=== PATIENT | female | born 1995 | race American Indian/Alaskan Native ===

== ENCOUNTER 2018-11-29 14:02 | Emergency (ER) | payer MEDICAID, OTHER ==
--- NOTE | 2018-11-29 14:41 | Emergency Department Report ---
Blank Doc - Documentation Documentation: Abdominal pain with vaginal discharge . Was told bacterial vaginosis took medi cation twice daily and now with vaginall itching and irritation. Treated and examined in [place] just moved here. No PCP. Had full std work up in [place]. LMP 10/24/2018 . No urinary burning, frequency, or utrhency. Positive lower abdominal pain. No fever or chills Labs,
[2018-11-29 15:23] LABS: Bilirubin,Urine NEG (Negative); Blood,Urine NEG (Negative); Color,Urine Yellow (Yellow); Mucus,Urine 3+ /HPF; Protein,Urine <15 mg/dL mg/dL (Negative); Urobilinogen,Urine < 2.0 mg/dL (<2.0)
[2018-11-29 15:28] LABS: HCG Qualitative,Urine Positive (Negative)
[2018-11-29 16:05] LABS: Hematocrit 30.6 % (30.3-42.9); Hemoglobin 9.9 gm/dl (10.1-14.3); Mean Corpuscular HGB Conc 33 % (30-34); Mean Corpuscular Volume 70 fl (79-97); Platelet Count 184 K/mm3 (140-440); Red Blood Count 4.37 M/mm3 (3.65-5.03); Red Cell Distribution Width 19.9 % (13.2-15.2)
[2018-11-29 16:25] LABS: BUN/Creatinine Ratio 15; Blood Urea Nitrogen 9 mg/dL (7-17); Calcium 9.6 mg/dL (8.4-10.2); Hemolysis Index 19
--- NOTE | 2018-11-29 16:33 | Emergency Department Report ---
ED Dysuria HPI - HPI Chief Complaint: Abdominal Pain Stated Complaint: vag dc Time Seen by Provider: 11/29/18 14:36 Duration: 3 Days Severity: Mild Symptoms: Dysuria: No, Frequency: No, Suprapubic Pain: No, Flank Pain: No, Fever: No, Hematuria: No, Abdominal Pain: No, Previous UTI's: No Other History: Patient is a 23-year-old female who comes to the ER today complaining of vaginal discharge. She had told the triage nurse that she was having back and abdominal pain. However, she denies having pain when asked by the provider. She states that she has been sleeping a lot and eating a lot. She states that her mother told her she was . However, patient does not believe that she can get because she has not in many years of being sexually active. Patient is having sex unprotected with 1 male partner. Patient is not concerned for STDs. G0. LMP 5-26 ED Review of Systems ROS: Stated complaint: SEVERE SHARP PAINS/DISCHARGE Other details as noted in HPI Comment: All other systems reviewed and negative ED Past Medical Hx - Past Medical History Previous Medical History?: Yes Hx Seizures: Yes - Surgical History Past Surgical History?: No - Family History Family history: no significant - Social History Smoking Status: Current Every Day Smoker - Medications Home Medications: Home Medications Medication Instructions Recorded Confirmed Last Taken Type Ondansetron [Zofran Odt] 4 mg PO Q8HR PRN #10 tab.rapdis 11/29/18 Unknown Rx Vit-Fe Fumar-FA [ 1 tab PO QDAY #30 tablet 11/29/18 Unknown Rx Vitamin] Dysuria Exam - Exam General: Vital signs noted. No distress. Alert and acting appropriately. Exam: Yes Moist Mucous Membranes, No CVA Tenderness, No Abdominal Tenderness, No Rigidity or Guarding Labs: Lab Results 11/29/18 11/29/18 11/29/18 Range/Units 14:49 15:45 15:45 WBC 7.0 (4.5-11.0) K/mm3 RBC 4.37 (3.65-5.03) M/mm3 Hgb 9.9 L (10.1-14.3) gm/dl Hct 30.6 (30.3-42.9) % MCV 70 L (79-97) fl MCH 23 L (28-32) pg MCHC 33 (30-34) % RDW 19.9 H (13.2-15.2) % Plt Count 184 (140-440) K/mm3 Sodium 135 L (137-145) mmol/L Potassium 4.0 (3.6-5.0) mmol/L Chloride 104.3 (98-107) mmol/L Carbon Dioxide 20 L (22-30) mmol/L Anion Gap 15 mmol/L BUN 9 (7-17) mg/dL Creatinine 0.6 L (0.7-1.2) mg/dL Estimated GFR > 60 ml/min BUN/Creatinine Ratio 15 % Glucose 84 (65-100) mg/dL Calcium 9.6 (8.4-10.2) mg/dL Urine Color Yellow (Yellow) Urine Turbidity Slightly-cloudy (Clear) Urine pH 5.0 (5.0-7.0) Ur Specific [place]ley 1.021 (1.003-1.030) Urine Protein <15 mg/dl (Negative) mg/dL Urine Glucose (UA) Neg (Negative) mg/dL Urine Ketones Neg (Negative) mg/dL Urine Blood Neg (Negative) Urine Nitrite Neg (Negative) Urine Bilirubin Neg (Negative) Urine Urobilinogen < 2.0 (<2.0) mg/dL Ur Leukocyte Esterase Neg (Negative) Urine WBC (Auto) 1.0 (0.0-6.0) /HPF Urine RBC (Auto) 3.0 (0.0-6.0) /HPF U Epithel Cells (Auto) 5.0 (0-13.0) /HPF Urine Mucus 3+ /HPF Urine HCG, Qual Positive A (Negative) Blood Type Ord Rhogam Gestat Weeks WEEKS 11/29/18 Range/Units 15:49 WBC (4.5-11.0) K/mm3 RBC (3.65-5.03) M/mm3 Hgb (10.1-14.3) gm/dl Hct (30.3-42.9) % MCV (79-97) fl MCH (28-32) pg MCHC (30-34) % RDW (13.2-15.2) % Plt Count (140-440) K/mm3 Sodium (137-145) mmol/L Potassium (3.6-5.0) mmol/L Chloride (98-107) mmol/L Carbon Dioxide (22-30) mmol/L Anion Gap mmol/L BUN (7-17) mg/dL Creatinine (0.7-1.2) mg/dL Estimated GFR ml/min BUN/Creatinine Ratio % Glucose (65-100) mg/dL Calcium (8.4-10.2) mg/dL Urine Color (Yellow) Urine Turbidity (Clear) Urine pH (5.0-7.0) Ur Specific [place] (1.003-1.030) Urine Protein (Negative) mg/dL Urine Glucose (UA) (Negative) mg/dL Urine Ketones (Negative) mg/dL Urine Blood (Negative) Urine Nitrite (Negative) Urine Bilirubin (Negative) Urine Urobilinogen (<2.0) mg/dL Ur Leukocyte Esterase (Negative) Urine WBC (Auto) (0.0-6.0) /HPF Urine RBC (Auto) (0.0-6.0) /HPF U Epithel Cells (Auto) (0-13.0) /HPF Urine Mucus /HPF Urine HCG, Qual (Negative) Blood Type A POSITIVE Ord Rhogam Gestat Weeks Rh pos WEEKS ED Course Vital Signs 11/29/18 14:34 Temperature 98.5 F Pulse Rate 83 Respiratory 18 Rate Blood Pressure 107/62 O2 Sat by Pulse 100 Oximetry ED Medical Decision Making - Lab Data Result diagrams: 11/29/18 15:45 11/29/18 15:45 - Medical Decision Making Vital Signs 11/29/18 14:34 Temperature 98.5 F Pulse Rate 83 Respiratory 18 Rate Blood Pressure 107/62 O2 Sat by Pulse 100 Oximetry Labs 11/29/18 11/29/18 11/29/18 14:49 15:45 15:45 WBC 7.0 RBC 4.37 Hgb 9.9 L Hct 30.6 MCV 70 L MCH 23 L MCHC 33 RDW 19.9 H Plt Count 184 Sodium 135 L Potassium 4.0 Chloride 104.3 Carbon Dioxide 20 L Anion Gap 15 BUN 9 Creatinine 0.6 L Estimated GFR > 60 BUN/Creatinine Ratio 15 Glucose 84 Calcium 9.6 Urine Color Yellow Urine Turbidity Slightly-cloudy Urine pH 5.0 Ur Specific Hurley 1.021 Urine Protein <15 mg/dl Urine Glucose (UA) Neg Urine Ketones Neg Urine Blood Neg Urine Nitrite Neg Urine Bilirubin Neg Urine Urobilinogen < 2.0 Ur Leukocyte Esterase Neg Urine WBC (Auto) 1.0 Urine RBC (Auto) 3.0 U Epithel Cells (Auto) 5.0 Urine Mucus 3+ Urine HCG, Qual Positive A Blood Type Ord Rhogam Gestat Weeks 11/29/18 15:49 WBC RBC Hgb Hct MCV MCH MCHC RDW Plt Count Sodium Potassium Chloride Carbon Dioxide Anion Gap BUN Creatinine Estimated GFR BUN/Creatinine Ratio Glucose Calcium Urine Color Urine Turbidity Urine pH Ur Specific [place]ley Urine Protein Urine Glucose (UA) Urine Ketones Urine Blood Urine Nitrite Urine Bilirubin Urine Urobilinogen Ur Leukocyte Esterase Urine WBC (Auto) Urine RBC (Auto) U Epithel Cells (Auto) Urine Mucus Urine HCG, Qual Blood Type A POSITIVE Ord Rhogam Gestat Weeks Rh pos preg pos- discussed with pt; she did not seem to surprised. Her mother had told her she was . abd soft non tender no cva tenderness one sexual partner in [facility] committed relationship no uti RH pos no vag bleed. no abdominal pain. no fever. no dysuria. one sexual partner G1 HCG NOTED 1630 ON REEXAM AGAIN DENIES ABD PAIN OR BLEEDING. DC HOME WITH OBGYN FOLLOW UP. - Differential Diagnosis UTI/STI/ Critical care attestation.: If time is entered above; I have spent that time in minutes in the direct care of this critically ill patient, excluding procedure time. ED Disposition Clinical Impression: Disposition: DC-01 TO HOME OR SELFCARE Is pt being admited?: No Does the pt Need Aspirin: No Condition: Stable Instructions: (ED) Additional Instructions: TYLENOL ONLY FOR PAIN BALANCED DIET DRINK A LOT OF WATER NO ALCOHOL OR DRUGS OR TOBACCO SAFE SEX FOLLOW UP WITH OBGYN FOR 1ST VISIT YOUR BLOOD TYPE IS RH POS LMP 10/20- EDC 07/26 DAILY VITAMIN Prescriptions: Vit-Fe Fumar-FA [ Vitamin] 1 tab PO QDAY #30 tablet Ondansetron [Zofran Odt] 4 mg PO Q8HR PRN #10 tab.rapdis PRN Reason: Vomiting Referrals: OVIDIO PEREZ MD [Staff Physician] - 3-5 Days Time of Disposition: 16:31
[2018-11-29 17:18] VITALS: BP 104/69
== END 2018-11-29 17:00 | disposition home or self-care (01) ==
LOC: ED 14:02
DX: O26.891 Other specified pregnancy related conditions, first trimester (principal); N89.8 Other specified noninflammatory disorders of vagina; M54.9 Dorsalgia, unspecified; R10.9 Unspecified abdominal pain; Z3A.01 Less than 8 weeks gestation of pregnancy
CPT/HCPCS: 36415; 80048; 81001; 81025; 84702; 85027; 86900; 86901

== ENCOUNTER 2018-12-15 21:08 | Emergency (ER) | payer SELFPAY ==
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
[2018-12-15 23:09] LABS: Bacteria,Urine 1+ /HPF (Negative); Bilirubin,Urine NEG (Negative); Blood,Urine NEG (Negative); Color,Urine Yellow (Yellow); Granular Casts,Urine 4 /LPF; Mucus,Urine 3+ /HPF; Urobilinogen,Urine < 2.0 mg/dL (<2.0)
[2018-12-16 00:28] VITALS: BP 118/70
== END 2018-12-16 00:25 | disposition home or self-care (01) ==
LOC: ED 21:08
DX: O23.41 Unspecified infection of urinary tract in pregnancy, first trimester (principal); Z79.899 Other long term (current) drug therapy; Z3A.01 Less than 8 weeks gestation of pregnancy
CPT/HCPCS: 36415; 76801; 76817; 81001; 84702

== ENCOUNTER 2019-07-23 19:26 | Inpatient (IN) | payer MEDICAID, OTHER ==
[2019-07-23] MEDS ORDERED: AMPICILLIN/NS 2 GM/100 ML 2 GM/100 ML BAG IV ONE (20:04)
[2019-07-23] MEDS ORDERED: LIDOCAINE (2%) 20 MG/1 ML VIAL 20 ML MDV INFILTRATI ONE (20:04)
[2019-07-23] MEDS ORDERED: MINERAL OIL 30 ML ORAL LIQD PO PRN (20:04)
[2019-07-23] MEDS ORDERED: TERBUTALINE 1 MG/1 ML INJ IVP PRN (20:04)
[2019-07-23] MEDS ORDERED: TERBUTALINE 1 MG/1 ML INJ SUB-Q PRN (20:04)
[2019-07-23] MEDS ORDERED: ePHEDrine SULFATE 50 MG/1 ML INJ IV PRN (20:04)
[2019-07-23] MEDS ORDERED: BUTORPHANOL 2 MG/1 ML INJ IV PRN ×2 (20:04)
[2019-07-23 20:49] LABS: Hematocrit 26.5 % (30.3-42.9); Hemoglobin 8.2 gm/dl (10.1-14.3); Mean Corpuscular HGB Conc 31 % (30-34)
[2019-07-23 20:50] LABS: Mean Corpuscular Volume 65 fl (79-97); Red Cell Distribution Width 22.2 % (13.2-15.2)
[2019-07-23 20:51] LABS: Platelet Count 155 K/mm3 (140-440)
[2019-07-23] MEDS ORDERED: OXYTOCIN 20 UNIT/1000ML DRIP 20 UNITS/1,000 ML BAG IV SCH (21:00)
[2019-07-23 21:01] LABS: Amphetamine Screen,Urine PRESUMPTIVE NEGATIVE; Benzodiazepines Screen,Urine PRESUMPTIVE NEGATIVE; Cocaine Screen,Urine PRESUMPTIVE NEGATIVE; Methadone Screen,Urine PRESUMPTIVE NEGATIVE; Opiate Screen,Urine PRESUMPTIVE NEGATIVE
--- NOTE | 2019-07-23 21:06 | History and Physical Report ---
History of Present Illness Chief complaint: uterine contractions History of present illness: 24yo at 39 1/7wks JAMES 07/31/19 with care in [place] presents in latent labor with regular painful contractions. Cervix 2/70/-3. Ultrasound reveals MELVIN 2. Therefore she was admitted for augmentation of labor for oligohydramnios at term. labs were drawn and resulted in REACTIVE RPR. Patient was unaware and states she tested positive for all blood work throughout her . Ultrasound done at [facility] in 11/2018 at 7 weeks gestation confirms dating. Her has been complicated by anemia for which she was diagnosed iron. She states she ate ice instead. She has a history of childhood seizures, last seizure at age 14. She states she saw a neurologist this and is on no medications. She is unaware of her GBS status and GBS is unknown. She denies HIV, Hepatitis C and genital herpes. 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: chlamydia (treated pre-), syphilis (REACTIVE RPR on L&D, titers and confirmatory test pending) Family/Genetic History: none Social history: single (FOB lives in [place]; mother lives in [place]) - Obstetrical History Expected Date of Delivery: 07/31/19 Actual Gestation: 39 Week(s) 0 Day(s) : 1 Number of Living Children: 0 Medications and Allergies Allergies Allergy/AdvReac Type Severity Reaction Status Date / Time No Known Allergies Allergy Verified 07/23/19 19:38 Home Medications Medication Instructions Recorded Confirmed Last Taken Type Ferrous Sulfate [Iron 325 MG] 1 tab PO DAILY 07/23/19 07/23/19 07/23/19 History Active Meds: Active Medications Butorphanol Tartrate (Stadol) 1 mg IV Q2H PRN PRN Reason: Labor Pain Butorphanol Tartrate (Stadol) 2 mg IV Q2H PRN PRN Reason: Pain , Severe (7-10) Ephedrine Sulfate (Ephedrine Sulfate) 10 mg IV Q2M PRN PRN Reason: Hypotension Oxytocin/Sodium Chloride (Pitocin/Ns 20 Unit/1000ml Drip) 20 units in 1,000 mls @ 125 mls/hr IV DIRECT JERRY Lactated Ringer's (Lactated Ringers) 1,000 mls @ 125 mls/hr IV DIRECT JERRY Ampicillin Sodium (Ampicillin/Ns 1 Gm/50 Ml) 1 gm in 50 mls @ 100 mls/hr IV Q4HR JERRY; Protocol Mineral Oil (Mineral Oil) 30 ml PO QHS PRN PRN Reason: Constipation Terbutaline Sulfate (Brethine) 0.25 mg SUB-Q ONCE PRN PRN Reason: Hyperstimulation/Hypertonicity Terbutaline Sulfate (Brethine) 0.25 mg IVP ONCE PRN PRN Reason: Hyperstimulation/Hypertonicity - Vital Signs Vital signs: Vital Signs Pulse BP 99 H 121/70 07/23/19 19:49 07/23/19 19:49 Temp Pulse Resp BP Pulse Ox 98.7 F 94 H 18 133/81 98 07/23/19 19:52 07/23/19 21:02 07/23/19 19:52 07/23/19 20:22 07/23/19 21:02 - Obstetrical FHR: category 1 Cervical Dilatation: 3 Cervical Effacement Percentage: 70 station: -2 Uterine Contraction Pattern: Regular Results Result Diagrams: 07/23/19 20:20 Abnormal lab results 07/23/19 Range/Units 20:20 WBC 11.5 H (4.5-11.0) K/mm3 Hgb 8.2 L (10.1-14.3) gm/dl Hct 26.5 L (30.3-42.9) % MCV 65 L (79-97) fl MCH 20 L (28-32) pg RDW 22.2 H (13.2-15.2) % All other labs normal. Assessment and Plan - Patient Problems (1) Positive RPR test Current Visit: Yes Status: Acute Plan to address problem: Patient notified of results and implication of reactive RPR results including possible false positive results. Explained confirmatory test is an offsite hospital test and therefore titers will be drawn and treatment recommended while awaiting results. Risks of syphillis discussed including stillbirth and po ssible NICU admission including need for testing and treatment. Genital lesions past and present denied. Risk of treatment with Penicillin G IM discussed. Patient understands and acknowledges risks. Plan PCN G 2.4mil units IM x 1. (2) Oligohydramnios Current Visit: Yes Status: Acute (3) 39 weeks gestation of Current Visit: Yes Status: Acute Plan to address problem: Obtain records from [place] when office opens. Admit for augmentation of labor due to oligohydramnios at term. GBS prophylaxis initiated due to unknown GBS prophylaxis. No recent seizures. Will monitor for signs. Pitocin augmentation initiated. Anticipate spontaneous vaginal delivery. (4) Anemia affecting Current Visit: Yes Status: Acute Plan to address problem: Asymptomatic anemia present on admission. Patient acknowledges diagnosis throughout care. Risk and benefits and potential need for blood transfusion during admission discussed. Patient acknowledges and understands risks.
[2019-07-23 21:13] LABS: Cannabinoid Screen,Urine PRESUMPTIVE POSITIVE
[2019-07-23 21:24] LABS: Hepatitis C Virus Antibody Non-Reactive (NonReactive)
--- NOTE | 2019-07-23 22:06 | Ultrasound Report ---
ULTRASOUND OBSTETRIC INDICATION: Assess well-being. Clinical Gestational Age (GA): 38 weeks, 6 days TECHNIQUE: Transabdominal. COMPARISON: OB ultrasound from 12/15/2018. FINDINGS: There is a single intrauterine . Biparietal Diameter = 8.7 cm = 34 weeks, 6 day(s). Head Circumference = 33.1 cm = 37 weeks, 5 day(s). Abdominal Circumference = 33.5 cm = 37 weeks, 3 day(s). Femur Length = 7.0 cm = 36 weeks, 0 day(s). Average Ultrasound Age (AUA) = 36 weeks, 4 day(s). Heart Rate: 144 beats per minute. Estimated Weight in grams (if calculated): 3044 Position: cephalic. Cervix: closed. Length in cm (if measured): 2.8 Placenta: anterior and free of the os. Amniotic Fluid Volume: decreased Amniotic Fluid Index (MELVIN) in cm (if calculated): 2.3. Maternal Adnexa: No significant abnormality. IMPRESSION: 1. Single, living intrauterine with estimated sonographic age of 36 weeks, 4 day(s). 2. Decreased MELVIN of 2.3 cm. Signer Name: Kranthi Og MD Signed: 07/23/2019 10:01 PM Workstation Name: [id number]
[2019-07-23] MEDS: LACTATED RINGERS 1,000 ML IV SCH (22:24)
[2019-07-24] MEDS: LACTATED RINGERS 1,000 ML IV SCH ×4 (01:11→10:44)
[2019-07-24] MEDS ORDERED: OXYTOCIN DRIP 30 UNITS/500 ML BAG IV SCH (01:12)
[2019-07-24] MEDS ORDERED: PENICILLIN G BENZATHINE 1.2 MILLION UNIT/2 ML INJ IM ONE (02:15)
[2019-07-24] MEDS: AMPICILLIN/NS 1 GM/50 ML 1 GM/50 ML BAG IV SCH ×3 (02:15→09:50)
[2019-07-24] MEDS ORDERED: ACETAMINOPHEN 325 MG TAB PO ONE (02:42)
[2019-07-24] MEDS ORDERED: DEXMEDETOMIDINE 200 MCG/2 ML VIAL IV ONE ×2 (03:07→13:07)
[2019-07-24] MEDS ORDERED: NALOXONE 2 MG/2 ML INJ IV PRN (03:28)
--- NOTE | 2019-07-24 03:28 | Anesthesia Consultation ---
Anesthesia Consult and Med Hx Date of service: 07/24/19 - Airway Anesthetic Teeth Evaluation: Good ROM Head & Neck: Adequate Mental/Hyoid Distance: Adequate Mallampati Class: Class II Intubation Access Assessment: Probably Good - Pulmonary Exam CTA: Yes - Cardiac Exam Cardiac Exam: RRR - Pre-Operative Health Status ASA Pre-Surgery Classification: ASA2 Proposed Anesthetic Plan: Epidural - Pulmonary Hx Asthma: No - Cardiovascular System Hx Hypertension: No - Central Nervous System Hx Seizures: Yes (epilepsy- no meds last seizure @age 14) Hx Psychiatric Problems: Yes (depression) - Endocrine Hx Renal Disease: No Hx Hypothyroidism: No Hx Hyperthyroidism: No - Hematic Hx Anemia: Yes (Iron) Hx Sickle Cell Disease: No - Other Systems Hx Alcohol Use: No
[2019-07-24] MEDS: ePHEDrine SULFATE 50 MG/1 ML INJ IV PRN ×2 (03:53→04:19)
[2019-07-24] MEDS ORDERED: fentaNYL-BUPIV 2 MCG/ML-0.125% 200 MCG/100 ML BAG EPIDURAL SCH (04:00)
[2019-07-24] MEDS ORDERED: SODIUM CHLORIDE 0.9% 1000 ML 1,000 ML ONE (06:20)
--- NOTE | 2019-07-24 07:55 | Progress Note ---
Assessment and Plan - Patient Problems (1) Positive RPR test Current Visit: Yes Status: Acute Plan to address problem: PCN G 2.4mil units IM x1 delivered. Titers 1:1 FT-ABS pending (will be sent to outside facility for results) Patient aware of plan to treat intrapartum and NICU aware of reactive RPR and will be present at delivery. (2) Oligohydramnios Current Visit: Yes Status: Acute (3) 39 weeks gestation of Current Visit: Yes Status: Acute Plan to address problem: Category II heart tracing - intrauterine resuscitation successful. Amnioinfusion started. Continue Pitocin augmentation. Anticipate . (4) Anemia affecting Current Visit: Yes Status: Acute Subjective - Subjective Principal diagnosis: augmentation of labor Interval history: Labor Day #2 Notified of Category II FHT by RN. Tracing noted to have occasional variable decelerations with moderate variability. Reviewed NST and consented patient on amnioinfusion. Tolerated procedure well. Epidural in place. Pitocin stopped. Patient comfortable. Objective - Vital Signs Vital Signs: Vital Signs - 12hr 07/23/19 07/23/19 07/23/19 19:52 19:57 20:02 Temperature 98.7 F Pulse Rate 99 H 93 H 105 H Respiratory 18 Rate Blood Pressure Blood Pressure 121/70 [Left] O2 Sat by Pulse 100 100 100 Oximetry 07/23/19 07/23/19 07/23/19 20:07 20:12 20:17 Temperature Pulse Rate 103 H 96 H 98 H Respiratory Rate Blood Pressure Blood Pressure [Left] O2 Sat by Pulse 100 100 100 Oximetry 07/23/19 07/23/19 07/23/19 20:22 20:26 20:27 Temperature Pulse Rate 104 H 113 H 96 H Respiratory Rate Blood Pressure 133/81 Blood Pressure [Left] O2 Sat by Pulse 100 92 99 Oximetry 07/23/19 07/23/19 07/23/19 20:32 20:35 20:37 Temperature Pulse Rate 92 H 111 H 96 H Respiratory Rate Blood Pressure Blood Pressure [Left] O2 Sat by Pulse 99 91 91 Oximetry 07/23/19 07/23/19 07/23/19 20:42 20:47 20:52 Temperature Pulse Rate 99 H 94 H 92 H Respiratory Rate Blood Pressure Blood Pressure [Left] O2 Sat by Pulse 90 100 99 Oximetry 07/23/19 07/23/1920 20:57 21:02 21:07 Temperature Pulse Rate 97 H 94 H 95 H Respiratory Rate Blood Pressure Blood Pressure [Left] O2 Sat by Pulse 99 98 100 Oximetry 07/23/19 07/23/19 07/23/19 22:10 22:28 22:33 Temperature 98.2 F Pulse Rate 95 H 93 H Respiratory Rate Blood Pressure Blood Pressure [Left] O2 Sat by Pulse 100 100 Oximetry 07/23/19 07/23/19 07/23/19 22:38 22:43 22:48 Temperature Pulse Rate 95 H 102 H 94 H Respiratory Rate Blood Pressure Blood Pressure [Left] O2 Sat by Pulse 100 100 100 Oximetry 07/23/19 07/23/19 07/23/19 22:53 22:58 23:03 Temperature Pulse Rate 104 H 89 88 Respiratory Rate Blood Pressure Blood Pressure [Left] O2 Sat by Pulse 100 100 100 Oximetry 07/23/19 07/23/19 07/23/19 23:10 23:15 23:20 Temperature Pulse Rate 89 87 104 H Respiratory Rate Blood Pressure Blood Pressure [Left] O2 Sat by Pulse 100 100 100 Oximetry 07/23/19 07/23/19 07/23/19 23:25 23:30 23:35 Temperature Pulse Rate 113 H 127 H 92 H Respiratory Rate Blood Pressure Blood Pressure [Left] O2 Sat by Pulse 100 100 99 Oximetry 07/23/19 07/23/19 07/24/19 23:40 23:45 00:10 Temperature Pulse Rate 91 H 105 H Respiratory 18 Rate Blood Pressure Blood Pressure [Left] O2 Sat by Pulse 100 100 Oximetry 07/24/19 07/24/19 07/24/19 01:21 01:26 01:31 Temperature Pulse Rate 90 89 87 Respiratory Rate Blood Pressure Blood Pressure [Left] O2 Sat by Pulse 100 100 100 Oximetry 07/24/19 07/24/19 07/24/19 01:36 01:41 01:46 Temperature Pulse Rate 85 87 87 Respiratory Rate Blood Pressure Blood Pressure [Left] O2 Sat by Pulse 100 100 100 Oximetry 07/24/19 07/24/19 07/24/19 01:51 01:56 02:01 Temperature Pulse Rate 100 H 84 91 H Respiratory Rate Blood Pressure Blood Pressure [Left] O2 Sat by Pulse 100 99 100 Oximetry 02/27/20 02/27/20 02/27/20 02:06 02:11 02:16 Temperature Pulse Rate 94 H 93 H 88 Respiratory Rate Blood Pressure Blood Pressure [Left] O2 Sat by Pulse 100 100 100 Oximetry 07/24/19 07/24/19 07/24/19 02:21 02:26 02:28 Temperature Pulse Rate 89 81 72 Respiratory Rate Blood Pressure Blood Pressure [Left] O2 Sat by Pulse 100 100 78 L Oximetry 07/24/19 07/24/19 07/24/19 02:31 02:36 02:41 Temperature Pulse Rate 94 H 103 H 100 H Respiratory Rate Blood Pressure Blood Pressure [Left] O2 Sat by Pulse 99 99 100 Oximetry 07/24/19 07/24/19 07/24/19 02:46 02:51 02:56 Temperature Pulse Rate 99 H 118 H 83 Respiratory Rate Blood Pressure Blood Pressure [Left] O2 Sat by Pulse 100 100 100 Oximetry 07/24/19 07/24/19 07/24/19 03:01 03:06 03:12 Temperature Pulse Rate 93 H 88 128 H Respiratory Rate Blood Pressure Blood Pressure [Left] O2 Sat by Pulse 100 100 99 Oximetry 07/24/19 07/24/19 07/24/19 03:17 03:22 03:24 Temperature Pulse Rate 94 H 85 93 H Respiratory Rate Blood Pressure 121/65 Blood Pressure [Left] O2 Sat by Pulse 100 100 Oximetry 07/24/19 07/24/19 07/24/19 03:27 03:30 03:32 Temperature Pulse Rate 84 71 94 H Respiratory Rate Blood Pressure 111/56 Blood Pressure [Left] O2 Sat by Pulse 100 100 Oximetry 07/24/19 07/24/19 07/24/19 03:33 03:36 03:37 Temperature Pulse Rate 88 77 82 Respiratory Rate Blood Pressure 110/58 108/58 Blood Pressure [Left] O2 Sat by Pulse 100 Oximetry 07/24/19 07/24/19 07/24/19 03:39 03:42 03:45 Temperature Pulse Rate 101 H 96 H 81 Respiratory Rate Blood Pressure 107/59 107/58 95/54 Blood Pressure [Left] O2 Sat by Pulse 100 Oximetry 07/24/19 07/24/19 07/24/19 03:47 03:48 03:51 Temperature Pulse Rate 62 60 90 Respiratory Rate Blood Pressure 94/53 109/64 Blood Pressure [Left] O2 Sat by Pulse 100 Oximetry 07/24/19 07/24/19 07/24/19 03:52 03:54 03:57 Temperature Pulse Rate 70 65 74 Respiratory Rate Blood Pressure 119/68 117/60 Blood Pressure [Left] O2 Sat by Pulse 100 100 Oximetry 07/24/19 07/24/19 07/24/19 04:00 04:02 04:03 Temperature Pulse Rate 83 75 66 Respiratory Rate Blood Pressure 116/62 111/58 Blood Pressure [Left] O2 Sat by Pulse 100 Oximetry 07/24/19 07/24/19 07/24/19 04:06 04:07 04:09 Temperature Pulse Rate 73 83 86 Respiratory Rate Blood Pressure 113/61 108/57 Blood Pressure [Left] O2 Sat by Pulse 100 Oximetry 07/24/19 07/24/19 07/24/19 04:12 04:17 04:22 Temperature Pulse Rate 70 80 57 L Respiratory Rate Blood Pressure Blood Pressure [Left] O2 Sat by Pulse 100 100 100 Oximetry 07/24/19 07/24/19 07/24/19 04:27 04:32 04:37 Temperature Pulse Rate 64 69 78 Respiratory Rate Blood Pressure Blood Pressure [Left] O2 Sat by Pulse 100 100 100 Oximetry 07/24/19 07/24/19 07/24/19 04:41 04:42 04:47 Temperature Pulse Rate 77 67 91 H Respiratory Rate Blood Pressure 109/57 Blood Pressure [Left] O2 Sat by Pulse 100 100 Oximetry 07/24/19 07/24/19 07/24/19 04:52 04:57 05:02 Temperature Pulse Rate 89 79 85 Respiratory Rate Blood Pressure Blood Pressure [Left] O2 Sat by Pulse 100 100 100 Oximetry 07/24/19 07/24/19 07/24/19 05:07 05:12 05:17 Temperature Pulse Rate 79 83 85 Respiratory Rate Blood Pressure 110/57 Blood Pressure [Left] O2 Sat by Pulse 100 100 100 Oximetry 07/24/19 07/24/19 07/24/19 05:22 05:27 05:32 Temperature Pulse Rate 94 H 80 80 Respiratory Rate Blood Pressure Blood Pressure [Left] O2 Sat by Pulse 100 100 100 Oximetry 07/24/19 07/24/19 07/24/19 05:37 05:40 05:42 Temperature Pulse Rate 121 H 80 80 Respiratory Rate Blood Pressure 133/88 Blood Pressure [Left] O2 Sat by Pulse 100 100 Oximetry 07/24/19 07/24/19 07/24/19 05:47 05:52 05:57 Temperature Pulse Rate 77 100 H 89 Respiratory Rate Blood Pressure Blood Pressure [Left] O2 Sat by Pulse 100 100 100 Oximetry 07/24/19 07/24/19 07/24/19 06:02 06:07 06:10 Temperature Pulse Rate 107 H 82 100 H Respiratory Rate Blood Pressure 117/64 Blood Pressure [Left] O2 Sat by Pulse 100 100 Oximetry 07/24/19 07/24/19 07/24/19 06:12 06:17 06:22 Temperature Pulse Rate 80 93 H 122 H Respiratory Rate Blood Pressure Blood Pressure [Left] O2 Sat by Pulse 100 95 100 Oximetry 07/24/19 07/24/19 07/24/19 06:27 06:32 06:37 Temperature Pulse Rate 117 H 130 H 78 Respiratory Rate Blood Pressure Blood Pressure [Left] O2 Sat by Pulse 100 100 100 Oximetry 07/24/19 07/24/19 07/24/19 06:40 06:42 06:47 Temperature Pulse Rate 109 H 89 109 H Respiratory Rate Blood Pressure 110/57 Blood Pressure [Left] O2 Sat by Pulse 100 100 Oximetry 07/24/19 07/24/19 07/24/19 06:52 06:57 07:02 Temperature Pulse Rate 83 81 71 Respiratory Rate Blood Pressure Blood Pressure [Left] O2 Sat by Pulse 100 100 100 Oximetry 07/24/19 07/24/19 07/24/19 07:07 07:10 07:12 Temperature 97.7 F Pulse Rate 70 78 72 Respiratory 18 Rate Blood Pressure 106/58 Blood Pressure [Left] O2 Sat by Pulse 100 100 Oximetry 07/24/19 07/24/19 07/24/19 07:17 07:22 07:27 Temperature Pulse Rate 81 72 96 H Respiratory Rate Blood Pressure Blood Pressure [Left] O2 Sat by Pulse 100 100 100 Oximetry 07/24/19 07/24/19 07/24/19 07:32 07:37 07:40 Temperature Pulse Rate 85 71 86 Respiratory Rate Blood Pressure 110/64 Blood Pressure [Left] O2 Sat by Pulse 100 100 Oximetry 07/24/19 07/24/19 07:42 07:47 Temperature Pulse Rate 75 79 Respiratory Rate Blood Pressure Blood Pressure [Left] O2 Sat by Pulse 100 100 Oximetry - Exam FHR: category 2 FHR comments: Occasional variable decelerations with Cervical Dilatation: 4 Cervical Effacement Percentage: 90 station: -1 Uterine Contraction Pattern: Regular - Labs Labs: Abnormal Labs 07/23/19 07/23/19 20:20 20:20 WBC 11.5 H Hgb 8.2 L Hct 26.5 L MCV 65 L MCH 20 L RDW 22.2 H Syphilis IgG Antibody Reactive A Laboratory Results - last 24 hr 07/23/19 07/23/19 07/23/19 20:20 20:20 20:20 WBC 11.5 H RBC 4.10 Hgb 8.2 L Hct 26.5 L MCV 65 L MCH 20 L MCHC 31 RDW 22.2 H Plt Count 155 Urine Opiates Screen Presumptive negative Urine Methadone Screen Presumptive negative Ur Barbiturates Screen Presumptive negative Ur Phencyclidine Scrn Presumptive negative Ur Amphetamines Screen Presumptive negative U Benzodiazepines Scrn Presumptive negative Urine Cocaine Screen Presumptive negative U Marijuana (THC) Screen Presumptive positive Drugs of Abuse Note Disclamer Syphilis IgG Antibody RPR Titer Hep Bs Antigen Hepatitis C Antibody HIV 1&2 Antibody Rapid HIV P24 Antigen Rubella IgG Antibody Blood Type A POSITIVE Antibody Screen Negative 07/23/19 07/23/19 07/23/19 20:20 20:20 20:20 WBC RBC Hgb Hct MCV MCH MCHC RDW Plt Count Urine Opiates Screen Urine Methadone Screen Ur Barbiturates Screen Ur Phencyclidine Scrn Ur Amphetamines Screen U Benzodiazepines Scrn Urine Cocaine Screen U Marijuana (THC) Screen Drugs of Abuse Note Syphilis IgG Antibody Reactive A RPR Titer Hep Bs Antigen Non-reactive Hepatitis C Antibody Non-reactive HIV 1&2 Antibody Rapid HIV P24 Antigen Rubella IgG Antibody Immune Blood Type Antibody Screen 07/23/19 07/23/19 20:20 20:20 WBC RBC Hgb Hct MCV MCH MCHC RDW Plt Count Urine Opiates Screen Urine Methadone Screen Ur Barbiturates Screen Ur Phencyclidine Scrn Ur Amphetamines Screen U Benzodiazepines Scrn Urine Cocaine Screen U Marijuana (THC) Screen Drugs of Abuse Note Syphilis IgG Antibody RPR Titer 1:1 Hep Bs Antigen Hepatitis C Antibody HIV 1&2 Antibody Rapid Non react HIV P24 Antigen Non react Rubella IgG Antibody Blood Type Antibody Screen
[2019-07-24] MEDS ORDERED: BUPIVACAINE/PF (0.25%) 2.5 MG/ML 10 ML VIAL INFILTRATI ONE (10:35)
[2019-07-24] MEDS ORDERED: METOCLOPRAMIDE 10 MG/2 ML INJ IV ONE (12:19)
[2019-07-24] MEDS ORDERED: BICITRA ORAL LIQD 30ML PO ONE (12:19)
[2019-07-24] MEDS ORDERED: FAMOTIDINE 20 MG/2 ML INJ IV ONE ×2 (12:19→12:22)
[2019-07-24] MEDS ORDERED: SODIUM BICARB 8.4% 50 MEQ/50 ML VIAL IV ONE (12:21)
[2019-07-24] MEDS ORDERED: ceFAZolin/Water 2 GM/20 ML 2 GM/20 ML SYRINGE IV ONE (12:22)
[2019-07-24] MEDS ORDERED: LIDOCAINE MPF (2%) 20 MG/1 ML VIAL 5 ML ONE (12:23)
[2019-07-24] MEDS ORDERED: OXYTOCIN 10 UNIT/1 ML INJ ONE (12:24)
--- NOTE | 2019-07-24 12:25 | Event Note ---
Date: 07/24/19 Pt noted to be c/c/0 commenced pushing. Excellent maternal effort resulted in no descent. FHR 80s while pushing, eventually without recovery. Attempted position change, fluid bolus, d/c of Pitocin, O2, scalp stimulation. Decision made to proceed with primary for failure of descent and distress. Dr. Alex notified and en route.
[2019-07-24] MEDS ORDERED: ceFAZolin/STERILE WATER 2 GM/20 ML SYRINGE IV ONE (12:50)
[2019-07-24] MEDS ORDERED: SODIUM CHLORIDE 0.9% IRR 1,500 ML BOTTLE IR ONE (12:50)
[2019-07-24] MEDS ORDERED: WATER FOR IRRIG STERILE 1,500 ML BOTTLE IR ONE (12:50)
[2019-07-24] MEDS ORDERED: OXYTOCIN 20 UNIT/1000ML DRIP 20 UNITS/1,000 ML BAG IV SCH ×2 (13:00→18:26)
[2019-07-24] MEDS ORDERED: LACTATED RINGERS 1,000 ML IV SCH (13:00)
[2019-07-24] MEDS ORDERED: SODIUM CHLORIDE 0.9% 100 ML ONE (13:07)
[2019-07-24] MEDS ORDERED: BUPIVACAINE/PF (0.5%) 5 MG/1 ML 30 ML VIAL INFILTRATI ONE (13:07)
[2019-07-24] MEDS ORDERED: dexAMETHasone 20 MG/5 ML VIAL ONE (13:07)
--- NOTE | 2019-07-24 13:29 | Procedure Note ---
OB Delivery Note - Delivery Date of Delivery: 07/24/19 Surgeon: NANDA WALSH Estimated blood loss: other (800 mL) - Section Preop diagnosis: arrest of descent, other (Maternal Request for Section during third stage of labor ) Postop diagnosis: same section procedure: section, primary low transverse Disposition: PACU Complications: none Narrative: Please see operative note. - A at 1 minute: 8 at 5 minutes: 9 Infant Gender: Male (3077g (6lb 12.5 oz) @ 1259 pm)
--- NOTE | 2019-07-24 13:30 | Operative Report ---
Operative Report Operative Report: Date of procedure : July 24, 2019 Preoperative diagnosis: 1) IUP at 39w0d 2) Oligohydramnios 3) Arrest of Descent 4) Maternal Refusal to Push Postoperative diagnosis: Same Procedure: Primary low transverse section Surgeon: Yola Alex M.D. Anesthesia: Regional Findings: 1) Viable male , Apgars 8 and 9, weight 3077 g, (6 lb 12.5 oz) in cephalic presentation. 2) Normal-appearing uterus ovaries and tubes Estimated blood loss: 800 mL IV fluids: 500 mL Urine output: 100 mL, clear at the end of the procedure Drains: Valdez to gravity Specimens: None Complications: None. Counts correct x 3 Disposition: Stable to PACU Indication for procedure: Pt is a 24-year-old primigravida at 39 weeks who presented in labor and was found to have oligohydramnios. She progressed to complete/complete/+3 and then admantally refused any further pushing because "I can't feel my legs" and demanded a section. The decision was made to proceed with section to adhere to patient preferences. Operation in detail: After the risks, benefits, alternatives and complications were explained to the patient she gave informed consent for the procedure. She was subsequently taken to the operating room where regional anesthesia was noted to be adequate. She was subsequently placed in the dorsal supine position with leftward tilt and prepped and draped in a normal sterile fashion. heart tones were noted prior to incision. A timeout was performed. A Pfannenstiel skin incision was made with the knife and carried down to the layer of the fascia with the Bovie. The fascia was incised in the midline and the fascial incision was extended bilaterally with the Bovie. The fascial incision was then stretched. The rectus muscles were then in the midline. The peritoneum was then entered bluntly. The peritoneal incision was extended with good visualization of the bladder. The peritoneal incision was then stretched. An Abhi retractor was placed. The bladder blade was then placed. A transverse incision was made in the lower uterine segment with a knife and extended bilaterally with the bandage scissors. head delivered with the aid of a vaginal hand, followed by shoulders and body. bulb suctioned at delivery. Cord clamped and cut. handed to NICU staff in attendance. The placenta was then delivered manually. The uterus was then exteriorized and cleared of all clots and debris. The hysterotomy was then reapproximated with 0 Vicryl in a running locked fashion. A second layer of the same suture was used in imbricating fashion. The hysterotomy was inspected and hemostasis was noted. The gutters were irrigated and cleared of all clots and debris. The hysterotomy was again inspected and noted to be hemostatic. Surgicel was placed over the hysterotomy. The Abhi retractor was removed. The uterus was placed back into the peritoneal cavity. The peritoneum was reapproximated with 2-0 Vicryl in a running fashion incorporating the rectus muscles. Surgicel was placed over the rectus muscles. The fascia was reapproximated with 0 Vicryl in a running fashion. The skin was reapproximated with 4-0 Vicryl in subcuticular fashion. The incision was then covered with steri strips and a pressure dressing. The procedure was then ended. The patient tolerated the procedure well and was taken to the PACU in stable condition. All instrument, lap, and needle counts were correct 3.
[2019-07-24] MEDS ORDERED: KETOROLAC 30 MG/1 ML INJ ONE (13:44)
[2019-07-24] MEDS ORDERED: SODIUM CHLORIDE 0.9% 500 ML 500 ML IV ONE (13:58)
[2019-07-24] MEDS ORDERED: MORPHINE 4 MG/1 ML INJ IV PRN (18:26)
[2019-07-24] MEDS ORDERED: LANOLIN/ZINC/DIMETHICONE (LANSINOH) 7 GM TP PRN (18:26)
[2019-07-24] MEDS ORDERED: NALOXONE 0.4 MG/1 ML INJ IV PRN (18:26)
[2019-07-24] MEDS ORDERED: D5W/LACTATED RINGERS 1,000 ML IV SCH (18:26)
[2019-07-24] MEDS ORDERED: MAGNESIUM HYDROXIDE (MOM) ORAL LIQD UDC PO PRN (18:26)
[2019-07-24] MEDS ORDERED: SIMETHICONE 80 MG CHEW TAB PO PRN (18:26)
[2019-07-24] MEDS ORDERED: WITCH HAZEL/ GLYCERIN PAD TP PRN (18:26)
[2019-07-24] MEDS ORDERED: ONDANSETRON 4 MG/2 ML INJ IV PRN (18:26)
[2019-07-24] MEDS: KETOROLAC 30 MG/1 ML INJ IV SCH (18:54)
[2019-07-24] MEDS: ceFAZolin/NS 1 GM/50 ML 1 GM/50 ML BAG IV SCH (23:13)
[2019-07-25] MEDS: KETOROLAC 30 MG/1 ML INJ IV SCH ×3 (00:30→12:19)
[2019-07-25 01:12] LABS: Hemoglobin 6.8 gm/dl (10.1-14.3)
[2019-07-25] MEDS: ceFAZolin/NS 1 GM/50 ML 1 GM/50 ML BAG IV SCH (05:00)
[2019-07-25] MEDS ORDERED: TETANUS,DIPH,PERTUSS(ACELL) VACCINE 0.5 ML SYRINGE IM ONE (06:00)
[2019-07-25] MEDS: IBUPROFEN 800 MG TAB PO SCH ×4 (06:09→17:45)
[2019-07-25] MEDS: oxyCODONE /ACETAMINOPHEN 5-325MG TAB PO PRN ×2 (08:20→19:21)
--- NOTE | 2019-07-25 09:32 | Post Anesthesia Evaluation ---
- Post Anesthesia Evaluation Airway Patent: Yes Stable Respiratory Function: Yes Nausea/Vomiting: No Temp > 96.8F: Yes Pain Manageable: Yes Adequeate Hydration: Yes Anesthesia Complications: No Block Receding Appropriately: Yes Patient on Ventilator: No
--- NOTE | 2019-07-25 12:16 | Progress Note ---
Assessment and Plan A/p pod1 S/P PRIMARY CSEC hx of rpr + routine Posop care ID consult for RPR Subjective - Subjective Date of service: 07/25/19 Principal diagnosis: augmentation of labor Patient reports: appetite normal, voiding normally, pain well controlled, ambulating normally : doing well Objective - Vital Signs Latest vital signs: Vital Signs Temp Pulse Resp BP BP Pulse Ox 07/25/19 07:49 98.1 F 109 H 20 121/80 100 07/25/19 04:23 98.2 F 90 20 132/74 100 07/25/19 00:11 98.2 F 20 122/78 07/24/19 20:58 98.2 F 95 H 20 124/80 97 07/24/19 15:30 97.4 F L 79 20 127/83 07/24/19 15:00 97.6 F 73 13 122/81 100 07/24/19 14:45 70 15 112/70 100 07/24/19 14:30 69 14 114/73 100 07/24/19 14:15 76 11 L 117/79 100 07/24/19 14:00 73 15 112/65 100 07/24/19 13:55 75 15 106/65 98 07/24/19 13:50 75 14 102/53 98 07/24/19 13:45 76 14 106/48 100 07/24/19 13:40 97.7 F 79 14 102/50 100 Intake and Output 07/24/19 07/25/19 07/25/19 23:59 07:59 15:59 Intake Total 370 560 Output Total 1100 800 Balance -730 -240 Intake: IV 50 ANCEF/NS 1 GM/50 ML 1 gm 50 In 50 ml @ 100 mls/hr IV Q8H [facility] Rx#:[id number] Oral 320 560 Output: Urine 1100 800 Indwelling Catheter 500 Uretheral (Valdez) 600 200 Void 600 Other: Total, Intake Amount 200 120 Total, Output Amount 300 600 # Voids Void 1 - Exam Breasts: Present: deferred Cardiovascular: Present: Regular rate, Normal S1 Lungs: Present: Clear to auscultation, Normal air movement Abdomen: Present: normal appearance, soft, normal bowel sounds. Absent: distention, tenderness, guarding Uterus: Present: normal, firm, fundal height below umbilicus. Absent: bogginess, tenderness Extremities: Present: normal Deep Tendon Reflex Grade: Normal +2 Incision: Present: normal, dry, dressed - Labs Labs: Abnormal lab results 07/23/19 07/25/19 Range/Units 20:20 00:20 Hgb 6.8 L (10.1-14.3) gm/dl Hct 22.0 L (30.3-42.9) % Crossmatch See Detail
[2019-07-25] MEDS ORDERED: MEASLES, MUMPS & RUBELLA 12,500 UNIT/0.5 ML VACCINE SUB-Q ONE (13:32)
--- NOTE | 2019-07-25 13:48 | Consultation ---
History of Present Illness - Reason for Consult Consult date: 07/25/19 RPR positive Requesting physician: CHARISMA LANGLEY - History of Present Illness 24 years old female with history of seizures, admitted on 07/23/2019 with 39 weeks due to painful contractions. Patient received care late in [place], [place]. She reports her blood work and labs were normal. Patient moved to [place] to help her family during her brother trial. Her due date was July 31, 2019. Ultrasound revealed MELVIN of 2 underwent on 07/24/2019 due to arrest of descent. Admission labs show RPR positive at 1:1 and syphilis IgG reactive, HIV negative hepatitis S antigen negative initial hemoglobin 8.2. UDS showed positive marijuana. Patient denies any previous history of syphilis or rash or genital ulcers. He has been with the father's baby for over 12 months. She has been diagnosed with gonorrhea and chlamydia years ago. She denies any history of HIV or hepatitis C. Review of Systems: positive in bold print General: fever, chills, no malaise Cutaneous: rash, pruritus Head: headaches or injury Eyes: changes in vision, eye pain, double vision Ears: ear pain, ear discharge, ringing or hearing loss Nose: nose bleeding, stuffiness Mouth & throat: bleeding gums, horseness, no dental problems, or swollen glands Neck: no pain, node enlargement/lumps, tyroid enlargement or tenderness Respiratory: SOB, no cough, no PARADA, wheezing, sputum, hemoptysis, pleuritic chest pain Cardiovascular: chest pain, leg edema, cyanosis, PARADA, orthopnea Musculoskeletal: edema Gastrointestinal: nausea, vomiting, hematemesis, diarrhea, constipation, melena, bright red blood in stools, fecal incontinence, jaundice Genitourinary/Reproductive:+uterine contraction Neurogical: seizures, headaches, weakness, paresthesias, loss of speech or vision; memory loss, vertigo, tremors, numbness Psychiatric: stable mood; excessive anxiety, sadness or moodiness Past History Social history: single (FOB lives in [place]; mother lives in [place]) Medications and Allergies Allergies Allergy/AdvReac Type Severity Reaction Status Date / Time No Known Allergies Allergy Verified 07/23/19 19:38 Home Medications Medication Instructions Recorded Confirmed Last Taken Type Ferrous Sulfate [Iron 325 MG] 1 tab PO DAILY 02/07/23/19 07/23/19 History Active Meds: Active Medications Butorphanol Tartrate (Stadol) 1 mg IV Q2H PRN PRN Reason: Labor Pain Last Admin: 07/24/19 00:10 Dose: 1 mg Documented by: Ephedrine Sulfate (Ephedrine Sulfate) 10 mg IV Q2M PRN PRN Reason: Hypotension Last Admin: 07/24/19 04:19 Dose: 10 mg Documented by: Dextrose/Lactated Ringer's ([email or web address]) 1,000 mls @ 125 mls/hr IV DIRECT JERRY Last Admin: 07/24/19 18:56 Dose: 125 mls/hr Documented by: Oxytocin/Sodium Chloride (Pitocin/Ns 20 Unit/1000ml Drip) 20 units in 1,000 mls @ 250 mls/hr IV DIRECT EJRRY Ibuprofen (Ibuprofen) 800 mg PO Q6HR JERRY Last Admin: 07/25/19 12:23 Dose: Not Given Documented by: Magnesium Hydroxide (Milk Of Magnesia) 30 ml PO QHS PRN PRN Reason: Constip Unrelieved By Senna Morphine Sulfate (Morphine) 4 mg IV Q4H PRN PRN Reason: Pain , Severe (7-10) Multi-Ingredient Ointment (Lansinoh) 1 applic TP PRN PRN PRN Reason: dryness/cracking Naloxone HCl (Naloxone) 0.1 mg IV Q2MIN PRN PRN Reason: Res Rate </= 8 or 02 SAT < 92% Ondansetron HCl (Zofran) 4 mg IV Q8H PRN PRN Reason: Nausea And Vomiting Oxycodone/Acetaminophen (Percocet 5/325) 2 tab PO Q4H PRN PRN Reason: Pain, Moderate (4-6) Last Admin: 07/25/19 08:20 Dose: 2 tab Documented by: Simethicone (Mylicon) 80 mg PO Q6H PRN PRN Reason: Gas pain Sodium Chloride (Sodium Chloride Flush Syringe 10 Ml) 10 ml IV PRN [facility] Witch Wendy/Glycerin (Tucks Pad) 1 each TP PRN PRN PRN Reason: Hemorrhoids/cleansing/soothing Physical Examination - Physical Exam Narrative exam: General appearance: Alert in NAD Eyes: anicteric sclerae, moist conjunctivae; no lid-lag; PERRLA HENT: Atraumatic; oropharynx clear Lungs: CTA, with normal respiratory effort and no intercostal retractions CV: RRR no murmur Abdomen: Soft, mild suprapubic tenderness with enlarged uterus and wound covered with surgical dressing Extremities: no edema, no cyanosis Skin: No rash. Psych: Appropriate affect, alert and oriented to person, place and time. Neuro: alert and oriented x 3. 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 Previous history of gonorrhea/chlamydia. She has never been treated for syphilis in the past. Currently with a positive treponemal assay (syphilis IgG) as well as a reactive RPR 1:1. This may represent latent syphilis. Patient reports previous syphilis test was negative during care, however there is no documentation. Patient had yesterday 07/24/2019. Vertical transmission is high year in early stage done late stage of syphilis. However given positive treponemal assay RPR congenital syphilis should be suspected. Will treat with 3 doses of penicillin G benzathine. #Suspected congenital syphilis Recommendations: Start penicillin G benzathine 2,400,000 units intramuscularly weekly x 3 (total 3 weeks) for the patient. Will order first dose today and next dose to be done on July 31 at the ID clinic evaluation to rule out congenital syphilis. If she cannot come to the ID clinic local health department offers syphilis treatment for free. Infectious disease clinic follow-up in 1 week Will follow. I will be covering the weekend please call me for any question, Dr. Douglas will be covering Sunday Essence Crespo MD Infectious Diseases [facility] M [phone] O [phone]
[2019-07-26] MEDS: IBUPROFEN 800 MG TAB PO SCH ×3 (00:53→23:59)
--- NOTE | 2019-07-26 07:06 | Progress Note ---
Assessment and Plan POD 2 s/p ltcs. Doing well. Pt has new finding of pos RPR. Continue current management. Plan for discharge tomorrow Subjective - Subjective Date of service: 07/26/19 Principal diagnosis: augmentation of labor Patient reports: appetite normal, voiding normally, ambulating normally : doing well Objective - Vital Signs Latest vital signs: Vital Signs Temp Pulse Resp BP Pulse Ox 07/26/19 00:44 98.3 F 99 H 20 116/69 99 07/25/19 16:14 98.1 F 77 18 130/80 99 07/25/19 07:49 98.1 F 109 H 20 121/80 100 Intake and Output 07/25/19 07/25/19 07/26/19 14:59 22:59 06:59 Intake Total 240 720 360 Balance 240 720 360 Intake: Oral 240 480 Intake, Free Water 240 360 Other: Total, Intake Amount 240 480 # Voids Indwelling Catheter 2 Void 1 2 # Bowel Movements 0 - Exam Breasts: Present: deferred Cardiovascular: Present: Regular rate, Normal S1, Normal S2 Lungs: Present: Clear to auscultation, Normal air movement Abdomen: Present: normal appearance, soft, normal bowel sounds Vulva: both: normal Uterus: Present: normal, firm Extremities: Present: normal Deep Tendon Reflex Grade: Normal +2 Incision: Present: normal, dry, intact
[2019-07-26] MEDS: oxyCODONE /ACETAMINOPHEN 5-325MG TAB PO PRN (16:51)
[2019-07-27] MEDS: IBUPROFEN 800 MG TAB PO SCH ×2 (06:18→18:20)
--- NOTE | 2019-07-27 16:04 | Progress Note ---
Assessment and Plan Pt is pod 3 s/p ltcs with new diagnosis of syphillis via rpr. Per patient and nursing staff, baby is ok to go on today. Will proceed with discharge of mother. Subjective - Subjective Date of service: 07/27/19 Principal diagnosis: augmentation of labor Patient reports: appetite normal, voiding normally, pain well controlled, ambulating normally [place]: doing well Objective - Vital Signs Latest vital signs: Vital Signs Temp Pulse Resp BP BP Pulse Ox 07/27/19 08:12 98.1 F 94 H 19 118/79 100 07/27/19 00:30 98.7 F 74 18 114/74 07/26/19 16:05 98.1 F 95 H 20 118/73 Intake and Output 07/27/19 07/27/19 07/27/19 06:59 14:59 22:59 Other: # Voids Void 1 2 - Exam Breasts: Present: deferred Cardiovascular: Present: Regular rate, Normal S1, Normal S2 Abdomen: Present: normal appearance, soft, normal bowel sounds Vulva: both: normal Uterus: Present: normal, firm Extremities: Present: normal Incision: Present: normal, dry, intact
--- NOTE | 2019-07-27 16:09 | Discharge Summary ---
Providers - Providers Date of Admission: 07/23/19 19:38 Date of discharge: 07/27/19 Attending physician: NANDA WALSH 07/25/19 07:53 Consult to Physician [CONS] Routine Comment: Consulting Provider: MARLEN TINAJERO Physician Instructions: Reason For Exam: Positive rpr Primary care physician: NANDA WALSH Hospitalization Reason for admission: active labor Delivery: Procedure: primary low transverse Incision: normal, dry, intact complications: other (positive RPR) [place] baby: female Hospital course: complicated by new diagnosis of syphillis Condition at discharge: Good Disposition: DC-01 TO HOME OR SELFCARE Plan - Discharge Medications Prescriptions: Docusate Sodium [Colace] 100 mg PO BID PRN #60 capsule PRN Reason: Constipation Ibuprofen [Motrin 800 MG tab] 800 mg PO Q6HR #40 tablet oxyCODONE /ACETAMINOPHEN [Percocet 5/325 mg] 2 tab PO Q4H PRN #40 tablet PRN Reason: Pain, Moderate (4-6) - Provider Discharge Summary Activity: routine, no sex for 6 weeks, no heavy lifting 4 weeks, no strenuous exercise Diet: routine Instructions: routine Additional instructions: [] Smoking cessation referral if applicable(refer to patient education folder for contact #) [] Refer to [facility] Booklet Call your doctor immediately for: * Fever > 100.5 * Heavy vaginal bleeding ( >1 pad per hour) * Severe persistent headache * Shortness of breath * Reddened, hot, painful area to leg or breast * Drainage or odor from incision. * Keep incision clean and dry at all times and follow doctor's instructions regarding bathing/showering - Follow up plan Follow up: NANDA WALSH MD [Primary Care Provider] - 7 Days Forms: Work/School Excuse Out Patient
[2019-07-27 17:00] VITALS: BP 111/61
== END 2019-07-27 20:00 | disposition home or self-care (01) | DRG 765 ==
LOC: TRG 19:26 → LD 19:38 → OBSVTOIN 19:38 → LD 21:33 → UNDOADMOB 21:33 → OB 07-24 15:40
PROVIDERS: ADMIT Obstetrics & Gynecology; ATTEND Obstetrics & Gynecology
PROC: 10907ZC Drainage of Amniotic Fluid, Therapeutic from Products of Conception, Via Natural or Artificial Opening (ICD-10-PCS; 2019-07-23)
PROC: 10D00Z1 Extraction of Products of Conception, Low, Open Approach (ICD-10-PCS; principal; 2019-07-24)
PROC: 3E0234Z Introduction of Serum, Toxoid and Vaccine into Muscle, Percutaneous Approach (ICD-10-PCS; 2019-07-25)
PROC: 3E0134Z Introduction of Serum, Toxoid and Vaccine into Subcutaneous Tissue, Percutaneous Approach (ICD-10-PCS; 2019-07-25)
DX: O41.03X0 Oligohydramnios, third trimester, not applicable or unspecified (principal); O99.324 Drug use complicating childbirth; O99.354 Diseases of the nervous system complicating childbirth; O32.4XX0 Maternal care for high head at term, not applicable or unspecified; O99.02 Anemia complicating childbirth; D64.9 Anemia, unspecified; F12.90 Cannabis use, unspecified, uncomplicated; G40.909 Epilepsy, unspecified, not intractable, without status epilepticus; O99.344 Other mental disorders complicating childbirth; F99 Mental disorder, not otherwise specified; O35.8XX0 Maternal care for other (suspected) fetal abnormality and damage, not applicable or unspecified; O62.1 Secondary uterine inertia; Z3A.39 39 weeks gestation of pregnancy; Z37.0 Single live birth; Z23 Encounter for immunization
CPT/HCPCS: 36415; 76805; 80307; 85014; 85018; 85027; 86592; 86593; 86706; 86762; 86780; 86803; 86850; 86900; 86901; 86920; 87806; G0378; J0290; J0561; J0595; J0690; J1100; J1885; J2590; J2765; J3490; J7030; J7120; J7121